=== PATIENT | female | born 1970 | race Caucasian/White ===

== ENCOUNTER 2017-12-07 18:08 | Emergency (ER) | payer BC ==
[~2017-12-07] VITALS: Ht 170.2 cm; Wt 139.7 kg
--- OUTSIDE RECORDS SUMMARY | 2017-12-07 18:11 | XMS REPORT | Summary of Care ---
Author Author [facility] Outpatient Imaging [facility] Outpatient Imaging [place] Address Unknown Phone Unavailable Encounter HQ Mira_enrico(FIN) [id number] Date(s): 02/23/15 - 02/23/15 [facility] Outpatient Imaging [address] [phone] Discharge Disposition: Home Attending Physician: Cecilio Mistry DO Vital Signs No data available for this section Problem List Condition Effective Dates Status Health Status Informant Acute bronchitis1 04/03/09 Resolved Acute maxillary 11/18/11 Resolved sinusitis2, 3, 4 Acute sinusitis5 06/23/06 Resolved Allergic rhinitis6 11/02/10 Active Bronchitis7, 8 03/26/13 Resolved Edema9 12/09/12 Active 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 2Data migrated from [employer] on 08/26/14. 3Data migrated from [employer] on 08/26/14. 4Data migrated from [employer] on 08/26/14. 5Data migrated from [employer] on 08/26/14. 6Data migrated from [employer] on 07/11/14. 7Data migrated from [employer] on 08/26/14. 8Data migrated from [employer] on 08/26/14. 9Data migrated from [employer] on 07/11/14. 10Data migrated from [employer] on 07/11/14. 11Data migrated from [employer] on 07/11/14. 12Data migrated from [employer] on 08/17/14. 13Data migrated from [employer] on 07/12/14. 14Data migrated from [employer] on 07/11/14. 15Data migrated from [employer] on 08/26/14. 16Data migrated from [employer] on 08/26/14. 17Data migrated from [employer] on 08/26/14. 18Data migrated from [employer] on 08/17/14. 19Data migrated from [employer] on 07/12/14. 20Data migrated from [employer] on 08/26/14. 21Data migrated from [employer] on 08/26/14. 22Data migrated from [employer] on 07/11/14. 23Data migrated from [employer] on 08/26/14. Allergies, Adverse Reactions, Alerts Substance Reaction Severity Status NKDA Active Medications No data available for this section Results No data available for this section Immunizations No data available for this section Procedures Procedure Date Related Diagnosis Body Site Cholecystectomy Procedure1 Sleeve resection2 1left knee surgery, miniscus repair 2gastric sleeve 2010 Social History Social History Type Response Smoking Status Never smoker; Exposure to Tobacco Smoke None; Cigarette Smoking Last 365 Days No; Reg Smoking Cessation Counseling No Assessment and Plan No data available for this section
--- OUTSIDE RECORDS SUMMARY | 2017-12-07 18:11 | XMS REPORT | CCD ---
Author Author Auto Generated Organization [facility] Outpatient Imaging [place] Address Unknown Phone Unavailable Care Team Providers Care Edger Runner Name Role Phone Fede Cecilio William CP Allergies, Adverse Reactions, Alerts Substance Reaction Status NKDA Active Problem List Condition Effective Dates Status Hypothyroidism Resolved 12/23/2011 - Resolved 10/02/2012 Medications Medication Instructions Start Date End Date Status M-M-R II 0.5 mL, Route: SUB-Q, Drug Form: 10/02/2012 10/02/2012 Completed PDR/INJ, Dosing Weight 130.455, kg, ONCALL, Give only if patient rubella non-immune, Start date: 10/02/12 17:00:00, Duration: 1 doses or times(Same as: M-M-R II) (tmefymo-iztzc-tnjcitn virus vaccine 0.5 ml INJ VL) GIVE PRIOR TO DISCHARGE Immunizations Vaccine Date Status measles/mumps/rubella virus vaccine 10/02/2012 Not Done
--- OUTSIDE RECORDS SUMMARY | 2017-12-07 18:11 | XMS REPORT | Summary of Care ---
Author Author [facility] Organization [facility] Address Unknown Phone Unavailable Encounter XAVIER Mcgregor(KAUR) [id number] Date(s): 03/31/17 - 03/31/[address] [place] [address]- [phone] Discharge Disposition: Home or Self Care Attending Physician: Chandrika Vinson MD Vital Signs Most recent to 1 oldest [Reference Range]: Height 170.18 cm (03/31/17 2:28 PM) Temperature Oral 98.8 DegF [96.4-99.1 DegF] (03/31/17 2:28 PM) Blood Pressure 134/89 mmHg [90-140/60-90 mmHg] (03/31/17 2:28 PM) Peripheral Pulse 90 bpm Rate [60-100 bpm] (03/31/17 2:28 PM) Weight 134.091 kg (03/31/17 2:28 PM) Body Mass Index 46.3 m2 (03/31/17 2:28 PM) Problem List Condition Effective Dates Status Health Status Informant Acute bronchitis1 04/03/09 Resolved Acute maxillary 11/18/11 Resolved sinusitis2, 3, 4 Acute sinusitis5 06/23/06 Resolved Allergic rhinitis6 11/02/10 Active Bronchitis7, 8 03/26/13 Resolved Edema9 12/09/12 Active 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 smfhvpeto86 Hypertensive 05/29/06 Active hshjroo44 Ienlsomaesqorh27, 08/05/05 Active 13, 14 Irpzdwwo35 01/13/09 Resolved Influenza-like 02/24/13 Resolved cbcylyi70 Morbid Active obesity(Confirmed) Otitis media17 02/24/13 Resolved Ahdmqvjedqg93, 19 06/14/14 Active (Confirmed) 12/23/11 - 10/02/12 Resolved Edorfwupv24 03/26/13 Resolved Upper respiratory 02/18/07 Resolved rrmqmfypc68 Izexedgw34 11/18/11 Active Nbtptoau76 10/03/08 Resolved 1Data migrated from [employer] [...] Substance Reaction Severity Status NKDA Active Medications albuterol 90 mcg/inh inhalation aerosol 2 puff, INHALATION, QID, PRN Wheezing, # 17 gm, 1 Refill(s), Pharmacy: [id number] Start Date: 03/31/17 Status: Ordered cefdinir 300 mg oral capsule 300 mg=1 cap, PO, Q12H, X 7 day, # 14 cap, 0 Refill(s), Pharmacy: [facility] [id number] Start Date: 03/31/17 Stop Date: 04/07/17 Status: Completed Medrol Dosepak 4 mg oral tablet See Instructions, PO, Take by mouth as directed on label., # 1 Pack, 0 Refill(s) , Pharmacy: [facility] [id number] Start Date: 03/31/17 Stop Date: 04/06/17 Status: Ordered Results No data available for this section Immunizations Given and Recorded Vaccine Date Status Refusal Reason influenza virus vaccine, inactivated 11/16/15 Given Procedures Procedure Date Related Diagnosis Body Site Status Cholecystectomy Completed Procedure1 Completed Sleeve resection2 Completed 1left knee surgery, miniscus repair 2gastric sleeve 2010 Social History Social History Type Response Smoking Status Never smoker; Exposure to Tobacco Smoke None; Cigarette Smoking Last 365 Days No; Reg Smoking Cessation Counseling No entered on: 03/31/17 Assessment and Plan No data available for this section
--- OUTSIDE RECORDS SUMMARY | 2017-12-07 18:11 | XMS REPORT | Continuity of Care Document ---
Author Author [facility] Interface Address Unknown Phone Unavailable Problems Problem Status Onset Date Classification Date Reported Comments Source DX: Z68.42=BODY MASS INDEX (BMI) 45.0-49 Active 08/04/2017 [facility] Z12.31 - ENCNTR SCREEN MAMMOGRAM FOR MA Active 02/07/2015 [facility] Pharyngitis<sup>18, 19</sup> Active 06/14/2014 Problem 07/07/2017 Data migrated from [employer] on 07/12/14. [facility] [place] Pharyngitis<sup>17, 18</sup> Resolved 06/14/2014 Problem 08/02/2017 Data migrated from [employer] on 07/12/14. Medical Group Bronchitis<sup>7, 8</sup> Resolved 03/26/2013 Problem 08/02/2017 Data migrated from [employer] on 08/26/14. [facility] Sinusitis<sup>20</sup> Resolved 03/26/2013 Problem 07/07/2017 Data migrated from [employer] on 08/26/14. [facility] Sinusitis<sup>19</sup> Resolved 03/26/2013 Problem 08/02/2017 Data migrated from [employer] on 08/26/14. Medical Group Influenza-like illness<sup>16</sup> Resolved 02/24/2013 Problem 07/07/2017 Data migrated from [employer] on 08/26/14. [facility] Otitis media<sup>17</sup> Resolved 02/24/2013 Problem 07/07/2017 Data migrated from [employer] on 08/26/14. [facility] [place] Influenza-like illness<sup>15</sup> Resolved 02/24/2013 Problem 08/02/2017 Data migrated from [employer] on 08/26/14. Medical Group Otitis media<sup>16</sup> Resolved 02/24/2013 Problem 08/02/2017 Data migrated from [employer] on 08/26/14. Medical Group Edema<sup>9</sup> Active 12/09/2012 Problem 08/02/2017 Data migrated from [employer] on 07/11/14. Medical Group, ENRRIQUED Davi Resolved 12/23/2011 Problem 08/02/2017 [facility], [facility] Acute maxillary sinusitis<sup>2, 3, 4</sup> Resolved 11/18/2011 Problem 08/02/2017 Data migrated from [employer] on 08/26/14. [facility], [facility] Vitiligo<sup>22</sup> Active 11/18/2011 Problem 07/07/2017 Data migrated from [employer] on 07/11/14. Medical Group, OPIAlea Tomlinson Vitiligo<sup>21</sup> Active 11/18/2011 Problem 08/02/2017 Data migrated from [employer] on 07/11/14. Medical Group Allergic rhinitis<sup>6</sup> Active 11/02/2010 Problem 08/02/2017 Data migrated from [employer] on 07/11/14. [facility] Group, OPIAlea Tomlinson Acute bronchitis<sup>1</sup> Resolved 04/03/2009 Problem 08/02/2017 Data migrated from [employer] on 08/26/14. [facility], [facility] Impetigo<sup>15</sup> Resolved 01/13/2009 Problem 07/07/2017 Data migrated from [employer] on 08/26/14. [facility], [facility] Impetigo<sup>14</sup> Resolved 01/13/2009 Problem 08/02/2017 Data migrated from [employer] on 08/26/14. Medical Group Vomiting<sup>23</sup> Resolved 10/03/2008 Problem 07/07/2017 Data migrated from [employer] on 08/26/14. Medical Group, OP[facility] Vomiting<sup>22</sup> Resolved 10/03/2008 Problem 08/02/2017 Data migrated from [employer] on 08/26/14. Medical Group Upper respiratory infection<sup>21</sup> Resolved 02/18/2007 Problem 07/07/2017 Data migrated from [employer] on 08/26/14. [facility] Group, KENAN Tomlinson Upper respiratory infection<sup>20</sup> Resolved 02/18/2007 Problem 08/02/2017 Data migrated from [employer] on 08/26/14. Medical Group Acute sinusitis<sup>5</sup> Resolved 06/23/2006 Problem 08/02/2017 Data migrated from [employer] on 08/26/14. Medical Group, KENAN [place] Human papilloma virus infection<sup>10</sup> Active 05/29/2006 Problem 08/02/2017 Data migrated from [employer] on 07/11/14. [facility] KENAN [place] Hypertensive episode<sup>11</sup> Active 05/29/2006 Problem 07/07/2017 Data migrated from [employer] on 07/11/14. [facility] KE[facility]N [place] Hypothyroidism<sup>12, 13, 14</sup> Active 08/05/2005 Problem 07/07/2017 Data migrated from [employer] on 07/11/14. Medical [facility] KENAN [place] Hypothyroidism<sup>11, 12, 13</sup> Active 08/05/2005 Problem 08/02/2017 Data migrated from [employer] on 07/11/14. Medical Group Hypothyroidism Resolved Problem 02/07/2013 KENAN [place] Morbid obesity Active Problem 07/07/2017 Medical Group, KENAN Tomlinson Body mass index 45.0-49.9, adult(<span ID="[id number]">Confirmed</span>) Active Problem 08/02/2017 [facility] Group H/O bariatric surgery Active Problem 08/02/2017 [facility] Group Hypertension Active Problem 08/02/2017 [facility] Group Irritable bowel syndrome Active Problem 08/02/2017 [facility] Group Physical exam Active Problem 08/02/2017 Medical Group LU (<span ID="[id number]">Confirmed</span>) Active Problem 08/02/2017 Medical Group PCOS (<span ID="[id number]">Confirmed</span>) Active Problem 08/02/2017 [facility] Group Prediabetes Active Problem 08/02/2017 [facility] Vitamin D deficiency Active Problem 08/02/2017 Medical [facility] Medications Medication Details Route Status Patient Instructions Ordering Provider Order Date Source lisinopril 10 mg oral tablet 10 mg=1 tab, PO, Daily, # 90 tab, 5 Refill(s), Pharmacy: [facility] [id number] Active 07/30/2017 [facility] albuterol 90 mcg/inh inhalation aerosol 2 puff, INHALATION, QID, PRN Wheezing, # 17 gm, 1 Refill(s), Pharmacy: [id number] Active 03/31/2017 [facility] cefdinir 300 MG Oral Capsule 300 mg=1 cap, PO, Q12H, X 7 day, # 14 cap, 0 Refill(s), Pharmacy: [id number] No Longer Active 03/31/2017 [facility] Group {21 (Methylprednisolone 4 MG Oral Tablet [Medrol]) } Pack [Medrol Dosepak] See Instructions, PO, Take by mouth as directed on label., # 1 Pack, 0 Refill(s), Pharmacy: [facility] [id number] Active 03/31/2017 [facility] M-M-R II 0.5 mL, Route: SUB-Q, Drug Form: PDR/INJ, Dosing Weight 130.455, kg, ONCALL, Give only if patient rubella non-immune, Start date: 10/02/12 17:00:00, Duration: 1 doses or times(Same as: M-M-R II) (measl yc-pcgvy-nbdwttd virus vaccine 0.5 ml INJ VL) GIVE PRIOR TO DISCHARGE Inactive Fede 10/02/2012 KENAN Tomlinson Allergies, Adverse Reactions, Alerts Substance Category Reaction Severity Reaction type Status Date Reported Comments Source NKFA Assertion Drug allergy Active [facility] Group Immunizations Immunization Date Given Site Status Last Updated Comments Source influenza virus vaccine, inactivated 11/16/2015 Right Deltoid completed [facility],YI Tomlinson measles/mumps/rubella virus vaccine 10/02/2012 Not Given Bobby Tomlinsno Results Order Name Results Value Reference Range Date Interpretation Comments Source Breast Limited Uni US Breast Limited Uni US LIMITED ULTRASOUND OF RIGHT BREAST: 01/31/2017 CLINICAL: Rt Breast Lump/Rt Breast Lump. COMPARISON:Comparison is made to exams dated: 01/31/2017 mammogram, 02/04/2013 mammogram, and 02/23/2015 mammogram - [facility]. TECHNIQUE: Color flow and real-time ultrasound of the right breast and retroareolar regions were performed on the areas of interest. FINDINGS: No abnormalities were seen sonographically in the right breast. Only normal fibroglandular and adipose tissue is seen in the palpable location. IMPRESSION: BENIGN RECOMMENDATION:These results were discussed with the patient, who was instructed to return immediately if she notices any change in the physical exam. There is no sonographic evidence of malignancy. A 1 year screening mammogram is recommended.(02/01/2018) This exam was interpreted at [id number] for NATHALY Gilbert 15. Professional services are provided by the [facility]. Shemar Colunga M.D. cm/penrad:01/31/2017 14:46:25 Ep Technologist(s): Darya Adams [facility] letter sent: BI-RADS 1/2 Ultrasound BI-RADS: 2 Benign 01/31/2017 - - Read by: Kar Penaloza MD Dictated Date/time: 01/31/17 14:46 Electronically Signed by: Kar Penaloza MD 01/31/17 14:46 FINAL REPORT YI Tomlinson Breast Mammo Diag TREVOR w sue incl CAD MA Breast Mammo Diag TREVOR w sue incl CAD MA BILATERAL DIGITAL DIAGNOSTIC MAMMOGRAM 3D/2D WITH CAD: 01/31/2017 CLINICAL: N63.0 Unspecified Lump In Unspecified Breast/N63.0 Unspecified Lump In Unspecified Breast. Current study was evaluated with a Computer Aided Detection (CAD) system. COMPARISON:Comparison is made to exams dated: 02/23/2015 mammogram and 02/04/2013 mammogram - [facility]. TECHNIQUE: Digital Breast Tomosynthesis was performed and utilized for Interpretation. Current study was also evaluated with a Computer Aided Detection (CAD) system. FINDINGS: There are scattered fibroglandular densities in both breasts. There are benign calcifications in both breasts. No significant masses, calcifications, or other findings are seen in either breast. IMPRESSION: INCOMPLETE: NEEDS ADDITIONAL IMAGING EVALUATION RECOMMENDATION:There is no mammographic abnormality seen in the right breast to correspond with the reported palpable abnormality; however, further workup with ultrasound is recommended. This exam was interpreted at [id number] for YI Tomlinson, SL 15. Professional services are provided by the [facility]. Shemar Colunga M.D. cm/penrad:01/31/2017 14:21:52 Ep Technologist(s): Giovanna Pagan, [facility] Mammogram BI-RADS: 0 Indeterminate 01/31/2017 - - Read by: Kar Penaloza MD Dictated Date/time: 01/31/17 14:21 Electronically Signed by: Kar Penaloza MD 01/31/17 14:21 [facility] [place] Digital Mammo Screen Trevor MA w sue Digital Mammo Screen Trevor MA w sue - DIGITAL MAMMO SCREEN TREVOR MA W SUE BILATERAL DIGITAL SCREENING MAMMOGRAM 3D/2D WITH CAD: 02/23/2015 CLINICAL: Screening. 2D digital mammographic images and 3D digital tomosynthesis images were obtained in the CC and MLO projections. Current study was evaluated with a Computer Aided Detection (CAD) system. Comparison is made to exam dated: 02/04/2013 mammogram - [facility]. There are scattered fibroglandular densities in both breasts. There are benign calcifications in both breasts. No significant masses, calcifications, or other findings are seen in either breast. There has been no significant interval change. IMPRESSION: BENIGN There is no mammographic evidence of malignancy. A 1 year screening mammogram is recommended. Sarah Aleman M.D. wi/penrad:02/23/2015 09:10:35 Ep Technologist: Genia CALDERON(Thomas)(Liliana), [facility] This exam was dictated and interpreted by [id number] at [facility]. letter sent: Normal exam Mammogram BI-RADS: 2 Benign 02/23/2015 - - Read by: Sarah Aleman MD Dictated Date/time: 02/23/15 09:10 Electronically Signed by: Sarah Aleman MD 02/23/15 09:10 FINAL [facility] [place] Digital Mammo Screening Trevor MA Digital Mammo Screening Trevor MA - DIGITAL MAMMO SCREENING TREVOR MA BILATERAL DIGITAL SCREENING MAMMOGRAM WITH CAD: 02/04/2013 CLINICAL: Routine. Current study was evaluated with a Computer Aided Detection (CAD) system. No prior exams were available for comparison. Current study contains 10 films. The tissue of both breasts is heterogeneously dense, which could obscure detection of small masses. There are benign calcifications in both breasts. No significant masses, calcifications, or other findings are seen in either breast. IMPRESSION: BENIGN There is no mammographic evidence of malignancy. A screening mammogram in one year is recommended. GENERAL OBSERVATIONS ABOUT MAMMOGRAPHY: 1. Not all breast cancers are detected by mammography and a negative report should not delay biopsy if a dominant or clinically suspicious mass is present. 2. Clinical examination and ultrasound is often more effective for small or dense breasts and retroareolar lesions. Dictation code: 15. Parvez Eldridge M.D. [facility]/:02/05/2013 11:20:20 Ep Technologist: Haylee Paul This exam was dictated and interpreted by [id number] for YI Tomlinson. letter sent: Bilateral Benign Mammogram BI-RADS: 2 Benign 02/04/2013 - - Read by: Parvez Eldridge Dictated Date/time: 02/05/13 11:20 Electronically Signed by: Parvez Eldridge MD 02/05/13 11:20 FINAL REPORT KENAN Tomlinson Vital Signs Vital Sign Value Date Comments Source BMI Calculated 47.33 07/30/2017 Medical Group Weight 137.074 07/30/2017 [facility] Group Height 170.18 cm 07/30/2017 [facility] Temperature Oral (F) 98.2 F 07/30/2017 [facility] Group Heart Rate 83 07/30/2017 [facility] Systolic (mm Hg) 140 07/30/2017 [facility] Diastolic (mm Hg) 94 07/30/2017 [facility] Group BMI Calculated 46.3 03/31/2017 [facility] Weight 134.091 03/31/2017 [facility] Height 170.18 cm 03/31/2017 [facility] Group Heart Rate 90 03/31/2017 [facility] Temperature Oral (F) 98.8 F 03/31/2017 [facility] Group Systolic (mm Hg) 134 03/31/2017 [facility] Group Diastolic (mm Hg) 89 03/31/2017 Medical Group Encounters Location Location Details Encounter Type Encounter Number Reason For Visit Attending Provider ADM Date DC Date Status Source Outpatient [id number] LAM JOHNSON 11/08/2014 Active [facility] [facility] [id number] Cecilio Mistry 02/23/2015 02/24/2015 [facility] Out[facility] [id number] CHANDRIKA DELGADO- GOR 07/04/2015 Active [facility] Outpatient [id number] CHANDRIKA DELGADO- GOR 11/16/[address] [facility] [id number] CHANDRIKA DELGADO- G[facility] 03/28/2016 Active [facility] [place] [facility] [id number] Virginia Larry 01/31/2017 02/01/2017 [facility] [place] Outpatient [id number] [facility] 03/31/2017 Active [facility] Outpatient [id number] Chandrika Delgado-Gor 03/31/2017 04/01/2017 Medical Group Outpatient [id number] [facility] 07/30/2017 Active [facility] Outpatient [id number] [facility] 07/30/2017 07/31/2017 Medical Group Outpatient [id number] [facility] 09/01/2017 Active [facility] Outpatient [id number] [facility] 09/12/2017 Active [facility] Outpatient [id number] JOSUE TALAMANTES 12/05/2017 Active [facility] Procedures Procedure Code Date Perfomer Comments Source Cholecystectomy [id number] [facility] Procedure<sup>1</sup> [id number] left knee surgery, miniscus repair [facility] Sleeve resection<sup>2</sup> [id number] gastric sleeve 2009 [facility] Cholecystectomy [id number] [facility] Procedure<sup>1</sup> [id number] [facility], [facility]<sup>2</sup> [id number] gastric sleeve 2010 [facility]
--- OUTSIDE RECORDS SUMMARY | 2017-12-07 18:11 | XMS REPORT | Summary of Care ---
Author Author [facility] Address Unknown Phone Unavailable Encounter XAVIER Mcgregor(KAUR) [id number] Date(s): 07/30/17 - 07/30/[address] [place] [address]- [phone] Discharge Disposition: Home or Self Care Attending Physician: Wilson Eduardo MD Vital Signs Most recent to 1 oldest [Reference Range]: Height 170.18 cm (07/30/17 8:17 AM) Temperature Oral 98.2 DegF [96.4-99.1 DegF] (07/30/17 8:17 AM) Blood Pressure 140/94 mmHg [90-140/60-90 mmHg] (07/30/17 8:17 AM) Peripheral Pulse 83 bpm Rate [60-100 bpm] (07/30/17 8:17 AM) Weight 137.074 kg (07/30/17 8:17 AM) Body Mass Index 47.33 m2 (07/30/17 8:17 AM) Problem List Condition Effective Dates Status Health Status Informant Acute bronchitis1 04/03/09 Resolved Acute maxillary 11/18/11 Resolved sinusitis2, 3, 4 Acute sinusitis5 06/23/06 Resolved Allergic rhinitis6 11/02/10 Active Bronchitis7, 8 03/26/13 Resolved Edema9 12/09/12 Active Body mass index Active (BMI) 45.0-49.9, adult(Confirmed) H/O bariatric Active surgery(Confirmed) 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 nnfqzmfna56 Hypertension(Confirm Active ed) Mpvcqliknkmiqp58, 08/05/05 Active 12, 13 Pmkkskhn00 01/13/09 Resolved Influenza-like 02/24/13 Resolved xrpodux23 Irritable bowel Active syndrome(Confirmed) Physical Active exam(Confirmed) LU (obstructive Active sleep apnea)(Confirmed) Otitis media16 02/24/13 Resolved Omlqcvqktbf41, 18 06/14/14 Resolved PCOS (polycystic Active ovarian syndrome)(Confirmed) Prediabetes(Confirme Active d) (Confirmed) 12/23/11 - 10/02/12 Resolved Wsypxmiqf89 03/26/13 Resolved Upper respiratory 02/18/07 Resolved xjtjjsecu27 Vitamin D Active deficiency(Confirmed ) Xutqnsci29 11/18/11 Active Gqgnmzns97 10/03/08 Resolved 1Data migrated from [employer] [...] 07/11/14. 11Data migrated from [employer] on 08/17/14. 12Data migrated from [employer] on 07/12/14. 13Data migrated from [employer] on 07/11/14. 14Data migrated from [employer] on 08/26/14. 15Data migrated from [employer] on 08/26/14. 16Data migrated from [employer] on 08/26/14. 17Data migrated from [employer] on 08/17/14. 18Data migrated from [employer] on 07/12/14. 19Data migrated from [employer] on 08/26/14. 20Data migrated from [employer] on 08/26/14. 21Data migrated from [employer] on 07/11/14. 22Data migrated from [employer] on 08/26/14. Allergies, Adverse Reactions, Alerts Substance Reaction Severity Status NKFA Active NKDA Active Medications lisinopril 10 mg oral tablet 10 mg=1 tab, PO, Daily, # 90 tab, 5 Refill(s), Pharmacy: [facility] 660 Start Date: 07/30/17 Status: Ordered Results No data available for [...] Reg Smoking Cessation Counseling No entered on: 07/30/17 Assessment and Plan No data available for this section
--- OUTSIDE RECORDS SUMMARY | 2017-12-07 18:11 | XMS REPORT | CCD ---
Author Author Auto Generated Organization [facility] [place] Address Unknown Phone Unavailable Care Team Providers Care Home Theater Expert Name Role Phone Fede Cecilio William CP [...] 1 doses or times(Same as: M-M-R II) (yaawkvn-kpgqh-nzuwrsf virus vaccine 0.5 ml INJ VL) GIVE PRIOR TO DISCHARGE Immunizations Vaccine Date Status measles/mumps/rubella virus vaccine 10/02/2012 Not Done
--- OUTSIDE RECORDS SUMMARY | 2017-12-07 18:11 | XMS REPORT | Summary of Care ---
Author Author [facility] Outpatient [facility] [place] Address Unknown Phone Unavailable Encounter XAVIER Mcgregor(KAUR) [id number] Date(s): 01/31/17 - 01/31/17 [facility] [place] [address] [address] [facility] [place] [id number]- [phone] Discharge Disposition: Home or Self Care Attending Physician: Virginia Juarez MD Vital Signs No data available for this section Problem List Condition Effective Dates Status Health Status Informant Acute bronchitis1 04/03/09 Resolved Acute maxillary 11/18/11 Resolved sinusitis2, 3, 4 Acute sinusitis5 06/23/06 Resolved Allergic rhinitis6 11/02/10 Active Bronchitis7, 8 03/26/13 Resolved Edema9 12/09/12 Active 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
--- OUTSIDE RECORDS SUMMARY | 2017-12-07 18:11 | XMS REPORT | CCD ---
Author Author Auto Generated Organization [facility] Out[facility] [place] Address Unknown Phone Unavailable Care Team Providers Care Fund Accountant Name Role Phone FedeCecilio William CP Allergies, Adverse Reactions, Alerts Substance [...] 1 doses or times(Same as: M-M-R II) (urtzkes-lhcyr-snqlrgy virus vaccine 0.5 ml INJ VL) GIVE PRIOR TO DISCHARGE Immunizations Vaccine Date Status measles/mumps/rubella virus vaccine 10/02/2012 Not Done
[2017-12-07] MEDS ORDERED: ACETAMINOPHEN 325 MG TAB PO ONE (19:30)
[2017-12-07] MEDS ORDERED: IBUPROFEN 200 MG TAB PO ONE (19:30)
[2017-12-07] MEDS ORDERED: ONDANSETRON HCL 4 MG ORAL DISINTEGRATING TAB PO ONE (19:30)
--- NOTE | 2017-12-07 19:54 | Diagnostic Imaging Report ---
History: Worsening sinus infection, unresolved with antibiotics. Comparison studies: None Technique: Axial images were obtained through the paranasal sinuses. Coronal and sagittal images reconstructed from the axial data. Intravenous contrast: None Findings: Right anterior complex: Frontal sinus: Clear. Frontonasal recess: Clear. Anterior ethmoid air cells: Moderate mucosal thickening. Ostiomeatal unit: Clear. Maxillary sinus: Mild mucosal thickening along the maxillary sinus floor. Subtle areas of focal hyperdensity within the opacified left maxillary sinus (image 38, series 4). Left anterior complex: Frontal sinus: Clear. Frontonasal recess: Mucosal thickening obstructing the frontonasal recess. Anterior ethmoid air cells: Moderate mucosal thickening. Ostiomeatal unit: opacified. Maxillary sinus: Completely opacified. Posterior complex: Sphenoid sinuses: Near complete opacification of right sphenoid sinus and mild mucosal thickening in left sphenoid sinus. Sphenoethmoidal recesses: Opacified on right, not well visualized on left. Posterior ethmoid air cells: Mild mucosal thickening. Other: Nasal vestibule and cavity: Patent Nasal septum: Minimal deviation to left without osseous spur. Agger Nasi: Partial opacification bilaterally. Turbinates: Partial pneumatization of bilateral middle turbinates and right superior turbinate. Ben cells: None Lamina papyracea: Intact. Cribriform plates: Symmetric, 5 mm below the level of the fovea ethmoidalis. Olfactory recesses: Clear Optic nerves: Not dehiscent [place]odi cells: None Internal carotid arteries: from the sphenoid sinuses by very thin osseous plate Sphenoid sinuses: Near complete opacification of right sphenoid sinus and mild mucosal thickening in left sphenoid sinus. The lateral recesses are opacified on the right side, mild mucosal thickening on left side. Sphenoid septum: Closed posteriorly and attaches towards the right side. Orbits: No abnormalities. Bones: No abnormalities. Temporal bones: No abnormalities. IMPRESSION: 1. Complete opacification of left maxillary sinus and obstruction of left osteomeatal unit. Focal hyperdensity within left maxillary sinus may represent inspissated secretions vs fungal sinusitis in appropriate clinical setting. 2. Near complete opacification of right sphenoid sinus. 3. Moderate mucosal thickening in bilateral ethmoid sinuses, mild mucosal thickening in left maxillary and sphenoid sinus. Signed by: Dr. Neli Hedrick M.D. on 12/07/2017 7:50 PM
[2017-12-07 20:25] VITALS: BP 166/107
== END 2017-12-07 20:39 | disposition home or self-care (01) ==
LOC: ER 18:08
DX: R51 Headache (principal); J01.00 Acute maxillary sinusitis, unspecified; J01.20 Acute ethmoidal sinusitis, unspecified; J01.10 Acute frontal sinusitis, unspecified; I10 Essential (primary) hypertension
CPT/HCPCS: 70486; 99284